=== PATIENT | female | born 1995 | race Caucasian/White ===

== ENCOUNTER 2016-05-03 09:54 | Outpatient (CLI) | payer OTHER | END 2016-05-03 09:55 | disposition home or self-care (01) | DX: R00.0 Tachycardia, unspecified (principal) ==

== ENCOUNTER 2016-07-06 10:13 | Outpatient (CLI) | payer OTHER | END 2016-07-06 10:14 | disposition home or self-care (01) | DX: K52.9 Noninfective gastroenteritis and colitis, unspecified (principal); R10.31 Right lower quadrant pain; R19.4 Change in bowel habit ==

== ENCOUNTER 2017-03-25 07:55 | Outpatient (CLI) | payer OTHER ==
--- NOTE | 2017-03-25 13:40 | MRI Preliminary Report ---
Exam: MRI FOOT RT W/O IMPRESSION: 1. Stress reactions involving the third greater than second metatarsal diaphyses. 2. Patchy areas of subchondral marrow edema at the tibial plafond, distal talus, navicular, cuneiform s and first through third metatarsal bases. These may represent areas of stress reaction and/or degen erative subchondral edema. [facility] MUSCULOSKELETAL RADIOLOGY SECTION SITE ID: [id number]
--- NOTE | 2017-03-25 17:03 | MRI Report ---
EXAM: RIGHT MIDFOOT MRI WITHOUT CONTRAST EXAM DATE: 03/25/2017 08:44 AM. 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 COMPARISON: Radiographs 03/17/2017. TECHNIQUE: Multiplanar, multisequence T1-weighted and fluid-sensitive sequences of the midfoot withou t contrast. Other: None. FINDINGS: Bones and Articular Surfaces: There is bony prominence at the distal dorsal aspect of the talus which may reflect an old healed avulsion injury. There are patchy areas of subchondral marrow edema within the medial aspect of the tibial plafond, the distal talus, navicular, cuneiforms, and first through third metatarsal bases. In addition, there is more pronounced marrow edema involving the third greate r than second metatarsal diaphyses consistent with stress reaction. The other areas of patchy marrow edema could be degenerative and/or stress related. No discrete fracture lines are demonstrated. No os teochondral lesions or significant articular cartilage defects. Small first MTP joint effusion. Musculotendinous Structures: Visualized flexor and extensor tendons appear intact. Visualized intrins ic muscles of the foot demonstrate no edema, atrophy or fatty replacement. Ligaments: Visualized Lisfranc ligament appears intact. Visualized tarsotarsal, tarsometatarsal and i ntermetatarsal ligaments appear intact. IMPRESSION: 1. Stress reactions involving the third greater than second metatarsal diaphyses. 2. Patchy areas of subchondral marrow edema at the tibial plafond, distal talus, navicular, cuneiform s and first through third metatarsal bases. These may represent areas of stress reaction and/or degen erative subchondral edema. [facility] MUSCULOSKELETAL RADIOLOGY SECTION Referring Provider Line: [phone] SITE ID: [id number]
== END 2017-03-25 07:56 | disposition home or self-care (01) ==
LOC: DI 07:55
PROVIDERS: ATTEND Family Medicine
DX: M79.671 Pain in right foot (principal)

== ENCOUNTER 2018-01-16 17:24 | Outpatient (CLI) | payer OTHER ==
[2018-01-16] MEDS ORDERED: IOPAMIDOL-300 50 ML VIAL ONE (17:29)
[2018-01-16] MEDS ORDERED: IOPAMIDOL-300 100 ML VIAL ONE (17:29)
[2018-01-16] MEDS ORDERED: IOPAMIDOL-300 50 ML VIAL PO ONE (18:52)
[2018-01-16] MEDS ORDERED: IOPAMIDOL-300 100 ML VIAL IVP ONE (18:52)
--- NOTE | 2018-01-16 20:07 | CT Report ---
Reason: ABDOMINAL PAIN,RT LOW QUAD Procedure Date: 01/16/2018 Accession Number: [id number] / [id number] Procedure: CT - Abdomen/Pelvis W/ CPT Code: FULL RESULT: EXAM: CT ABDOMEN AND PELVIS EXAM DATE: 01/16/2018 06:37 PM. CLINICAL HISTORY: Abdominal pain, right lower quadrant. Patient has had similar symptoms for the last year. COMPARISONS: None. TECHNIQUE: Routine helical CT imaging was performed through the abdomen and pelvis. IV contrast: ISOVUE 300 100mL. Enteric contrast: Oral contrast. Reconstructions: Coronal and sagittal. In accordance with CT protocol optimization, one or more of the following dose reduction techniques were utilized for this exam: automated exposure control, adjustment of mA and/or KV based on patient size, or use of iterative reconstructive technique. FINDINGS: Lung Bases: Unremarkable. Liver: Normal. No masses. Gallbladder/Bile Ducts: Unremarkable. Spleen: Normal. Pancreas: Normal. Adrenal Glands: Normal. Kidneys: Normal. No masses or hydronephrosis. Peritoneal Cavity/Bowel: Oral contrast extends through to the hepatic flexure. Terminal ileum shows moderate irregular wall thickening with a small amount of adjacent edema, compromise of the lumen. Multiple borderline enlarged right lower quadrant mesenteric lymph nodes. Colon is of normal caliber. No free air nor free fluid. The appendix is well visualized and normal. Pelvic Organs: Normal. The bladder and visualized pelvic organs are within normal limits. Vasculature: No aneurysms or other significant abnormality. Bones: No significant abnormality. Other: None. IMPRESSION: 1. Normal appendix. 2. Abnormal terminal ileum and right lower quadrant mesenteric adenopathy. Differential is primarily between gastroenteritis versus inflammatory bowel disease. Less likely ischemia given the adenopathy. [facility] The call report notification system was initiated by Dr. Jena Forde at 20:02 hrs on 01/16/18. The above findings were discussed with Dr Maria Alejandra Dr by Dr. Jena Forde at 20:06 hrs on 01/16/18.
== END 2018-01-16 17:25 | disposition home or self-care (01) ==
LOC: DI 17:24
PROVIDERS: ATTEND Family Medicine
DX: R59.0 Localized enlarged lymph nodes (principal); R10.31 Right lower quadrant pain
CPT/HCPCS: 74177; Q9967